=== PATIENT | female | born 1945 | race Caucasian/White ===

== ENCOUNTER 2024-11-15 09:12 | Day surgery (SDC) | payer MEDICARE, OTHER ==
[2024-11-15] VITALS (13 sets, daily range): BP systolic 113–171; BP diastolic 62–109
[~2024-11-15] VITALS: Ht 152.4 cm; Wt 76.8 kg
[~2024-11-15 09:12] MED LIST: DICL75ER PO; ESOM20 PO; LOSA50 PO; ROSUVASTATIN CA10 MG PO
[2024-11-15] MEDS ORDERED: FentaNYL Citrate 50 MCG/ML 2 ML Injection ONE (09:19)
[2024-11-15] MEDS ORDERED: propofoL 40 ML IV ONE (09:19)
[2024-11-15] MEDS ORDERED: Chlorhexidine Mouth Care 15 ML UDC MT SCH (09:40)
[2024-11-15] MEDS ORDERED: Lactated Ringer's 1,000 ML IV SCH ×2 (09:40→11:15)
[2024-11-15] MEDS ORDERED: Ropivacaine 0.5% HCl/Pf 123.125 MG,EPINEPHrine HCL 0.25 MG,Ketorolac Tromethamine 15 MG... INFIL SCH (09:40)
[2024-11-15] MEDS ORDERED: Tranexamic Acid 100 ML IV SCH (09:40)
[2024-11-15] MEDS ORDERED: OxyCODONE HCL 10 MG TABCR PO SCH (09:40)
[2024-11-15] MEDS ORDERED: Acetaminophen 500 MG Tab PO SCH ×2 (09:40→16:00)
[2024-11-15] MEDS ORDERED: CeFAZolin Sodium 2,000 MG in NS 100 ML IV SCH ×2 (09:40→19:30)
[2024-11-15] MEDS ORDERED: CeFAZolin Sodium 2,000 MG VIAL ONE (09:58)
[2024-11-15] MEDS ORDERED: Cetirizine HCl5 MG (10:03)
[2024-11-15] MEDS ORDERED: Flonase 0.05% N16 GM (10:03)
--- NOTE | 2024-11-15 10:24 | NUR ---
Ambulatory in Day SurgeryPre-Op teaching done. Pt verbalizes understanding. History, Chart, Medications and Allergies reviewed before start of procedure.Patient confirms NPO status and agrees with scheduled surgery. Patient reports completing Chlorhexadine shower X2 prior to admission to hospital.
[2024-11-15] MEDS ORDERED: Metoclopramide HCl 5MG / ML 2ML Vial IV PRN (10:55)
[2024-11-15] MEDS ORDERED: Magnesium Hydroxide Conc 10 ML UDC PO PRN (10:55)
[2024-11-15] MEDS ORDERED: Ondansetron HCl 2 MG / ML 2ML Vial IV PRN ×2 (10:55→13:50)
--- NOTE | 2024-11-15 10:59 | NUR ---
PT ASSISTED UP TO BR FOR PRE-OP VOID. PT UNSTABLE ON FEET. STATES SHE FEELS DIZZY. UNABLE TO AMBULATE TO BR. BACK TO BED VSS
[2024-11-15] MEDS ORDERED: OxyCODONE HCL 5 MG TAB PO PRN ×2 (11:00→11:15)
[2024-11-15] MEDS ORDERED: Promethazine HCl 25 MG Tab PO PRN (11:00)
[2024-11-15] MEDS ORDERED: DiphenhydrAMINE HCL 25 MG Cap PO PRN (11:05)
[2024-11-15] MEDS ORDERED: HYDROmorphone HCl/Pf 1MG SYR IV PRN ×2 (11:05→13:50)
[2024-11-15] MEDS ORDERED: Bisacodyl 10 MG Supp PR PRN (11:05)
[2024-11-15] MEDS ORDERED: propofoL 20 ML IV ONE (12:39)
[2024-11-15] MEDS ORDERED: Labetalol HCL 5 MG/ML 4ML Injection (Single Dose) IV PRN (13:45)
[2024-11-15] MEDS ORDERED: FentaNYL Citrate 50 MCG/ML 2 ML Injection IV PRN (13:45)
[2024-11-15] MEDS ORDERED: Dexamethasone Sodium Phosphate 4 MG/ML 5ML VIAL IV PRN (13:50)
[2024-11-15] MEDS ORDERED: Ketorolac Tromethamine 15mg Vial IV PRN (14:00)
[2024-11-15] MEDS ORDERED: Ketorolac Tromethamine 30mg Vial IV PRN (14:00)
--- NOTE | 2024-11-15 14:06 | NUR ---
ARRIVAL TO UNIT PT TO ROOM IN BED VIA PACU. R TKA. POLAR PACK ON. PULSES PALPABLE DISTALLY. NISHA/SCD ON. IV DRIPPING TKO INTO SITE LEFT ARM. DENIES PAIN. VSS. WILL CONTINUE TO MONITOR.
--- NOTE | 2024-11-15 16:12 | NUR ---
PT ABLE TO LIFT RIGHT LEG OFF OF BED FOR SEVERAL SECONDS. MINIMAL NUMBNESS TO LEG PER PT.
--- NOTE | 2024-11-15 16:59 | NUR ---
PT SITTING UP IN CHAIR. POLAR PACK ON. ABLE TO WALK APPROX 5 STEPS WITH PHYSICAL THERAPY. WILL CONTINUE TO MONITOR.
--- NOTE | 2024-11-15 17:51 | NUR ---
END OF SHIFT PT SITTING UP IN CHAIR. POLAR PACK ON. EATING MEAL TRAY. PAIN 10/11. AWAITING VOID. WILL CONTINUE TO MONITOR.
[2024-11-15] MEDS ORDERED: Losartan Potassium 50 MG Tab PO SCH (18:00)
[2024-11-15] MEDS ORDERED: Ketorolac Tromethamine 15mg Vial IV SCH (18:00)
--- NOTE | 2024-11-15 18:34 | NUR ---
PT UP TO WALK APPROX 50 FEET WITH USE OF WALKER. INTO BR TO VOID UNCOUNTED AMT (MISSED COLLECTION DEVICE). NO BLADDER SCANNER IS PRESENTLY AVAILABLE. WILL CONTINUE TO MONITOR.
[2024-11-15] MEDS ORDERED: NS 250 ML IV PRN (20:10)
[2024-11-15] MEDS ORDERED: Docusate Sodium 100 MG Cap PO SCH (21:00)
[2024-11-16 03:39] VITALS: BP 126/66
--- NOTE | 2024-11-16 05:06 | NUR ---
SHIFT SUMMARY NOC. PT POD 1 FOR RIGHT KNEE ARTHROPLASTY. PT'S FAHEEMEL HAS A QUARTER SIZED DRIED SEROSANG DRAINAGE OVER KNEE, OUTLINED AT START OF SHIFT WITH NO CHANGES. DRAINAGE NOT CLOSE TO BOARDER OF DRESSING IN ANY DIRECTION. PT VERBALIZED NAUSEA W/O VOMIT EPISODE. MEDICATED WITH ZOFRAN, PT REPORTED THIS MADE NAUSEA WORSE. PT DECLINED FURTHER NAUSEA MEDICATIONS, NON PHARM INTERVENTIONS FOR NAUSEA INITIATED. PT MEDICATED FOR PAIN WITH SCHEDULED MEDS AND OXY 5MG X1. PT AMBULATED TO WITH 1 PERSON ASSIST, FWWLOUIS. PT REPORTED MILD DIZZINESS UPON STANDING, VSS. PT VOIDING URINE AND TOLERATING SIPS OF CLEAR LIQUIDS. MAKES NEEDS KNOWN, CALL LIGHT IN REACH.
[2024-11-16] MEDS ORDERED: Pantoprazole Sodium 40 MG Tab PO SCH (06:00)
[2024-11-16 06:07] LABS: Hematocrit 33.1 % (33.0-51.0); Hemoglobin 10.9 g/dL (11.5-16.0); Mean Corpuscular HGB 31.7 pg (26.0-34.0); Mean Corpuscular HGB Conc 32.9 g/dL (31.5-36.5); Mean Corpuscular Volume 96 fL (80-100); Mean Platelet Volume 9.7 fL (9.1-12.4); Platelet Count 234 K/mm3 (150-400); RDW Coefficient Variation 12.2 % (11.7-14.2); RDW Standard Deviation 42.8 fL (35.1-46.3); Red Blood Cell Count 3.44 M/mm3 (3.80-5.20)
[2024-11-16 06:26] LABS: Bun/Creatinine Ratio 19.3 (12.0-20.0); Creatinine, Blood 0.78 mg/dL (0.40-1.00); Magnesium, Blood 2.1 mg/dL (1.6-2.4); Potassium, Blood 4.4 mmol/L (3.5-5.5)
[2024-11-16 06:27] LABS: BASOPHILS PERCENT MAN 0 % (0-2); EOSINOPHILS ABSOLUTE MAN 0.09 K/mm3 (0.00-0.68); EOSINOPHILS PERCENT MAN 1 % (0-6); LYMPHOCYTES % ATYPICAL MANUAL 1 % (0-0); LYMPHOCYTES ABSOLUTE MAN 1.11 K/mm3 (0.84-5.20); LYMPHOCYTES PERCENT MAN 11 % (21-46); MONOCYTES ABSOLUTE MAN 0.83 K/mm3 (0.16-1.47); MONOCYTES PERCENT MAN 9 % (4-13); NEUTROPHILS ABSOLUTE MAN 7.25 K/mm3 (1.96-9.15); SEG NEUTROPHILS PERCENT MAN 78 % (41-73); TOTAL CELLS COUNTED 100
[2024-11-16 07:27] VITALS: BP 137/63
[2024-11-16] MEDS ORDERED: Aspirin 81 MG Chew PO SCH (09:00)
[2024-11-16] MEDS ORDERED: Rosuvastatin Calcium 10 MG Tab PO SCH (09:00)
[2024-11-16] MEDS ORDERED: Fluticasone 0.05% Nasal Spray SCH (09:00)
[2024-11-16] MEDS ORDERED: Loratadine 10 MG Tab PO SCH (09:00)
[2024-11-16] MEDS ORDERED: ACET500 PO (09:06)
[2024-11-16] MEDS ORDERED: ASPI81CH PO (09:07)
[2024-11-16] MEDS ORDERED: DOCU100 PO (09:08)
[2024-11-16] MEDS ORDERED: OXYC5 PO (09:09)
--- NOTE | 2024-11-16 09:23 | NUR ---
DISCHARGE DISCHARGE INSTRUCT REVIEWED. STATED UNDERSTANDING. INSTRUCT DISPENSED. AWAITING DAUGHTER FOR FINAL DISPOSITION.
== END 2024-11-16 10:21 | disposition home or self-care (01) ==
LOC: ORSCMMR 09:12 → ORD 10:30 → ORSCMMR 13:59 → SURS 13:59 → ORSCMMR 11-16 10:21 → SURS 11-16 10:21
PROVIDERS: Orthopaedic Surgery
PROC: 0SRC0JA Replacement of Right Knee Joint with Synthetic Substitute, Uncemented, Open Approach (ICD-10-PCS; principal; 2024-11-15 10:30)
DX: M17.11 Unilateral primary osteoarthritis, right knee (principal); I10 Essential (primary) hypertension; E78.5 Hyperlipidemia, unspecified; K21.9 Gastro-esophageal reflux disease without esophagitis; E66.9 Obesity, unspecified; Z68.33 Body mass index [BMI] 33.0-33.9, adult; Z79.899 Other long term (current) drug therapy
CPT/HCPCS: 36415; 73560-RT; 80048; 83735; 85025; 97110; 97116; 97161; 97530; A9270; C1713; C1776; C1887; J0171; J0690; J0735; J1885; J2405; J2704; J2795; J3010; J7050; J7120